=== PATIENT | female | born 2000 | race Two or more races ===

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

== ENCOUNTER 2021-10-03 09:12 | Emergency (ER) | payer OTHER ==
[~2021-10-03] VITALS: Ht 167.6 cm; Wt 70.8 kg
[~2021-10-03 09:12] MED LIST: MOBI4TAB PO
[2021-10-03] MEDS ORDERED: NS 1,000 ML IV ONE (10:00)
[2021-10-03] MEDS ORDERED: ONDANSETRON 4MG/2ML VIAL IV ONE (10:00)
[2021-10-03 10:51] LABS: BASO % 0.2 % (0.0-1.0); EOS % 0.4 % (0.0-3.0); HEMATOCRIT 33.7 % (36.0-47.0); HEMOGLOBIN 11.3 g/dl (12.0-15.5); LYMPH # 1.3 10^3/uL (1.5-5.0); LYMPH % 14.8 % (24.0-44.0); MEAN CORPUSCULAR HEMOGLOBIN 26.7 pg (27.0-33.0); MEAN CORPUSCULAR HGB CONC 33.5 g/dl (32.0-36.5); MEAN CORPUSCULAR VOLUME 79.7 fl (80.0-96.0); MONO # 0.4 10^3/uL (0.0-0.8); MONO % 4.8 % (2.0-8.0); NEUTROPHILS # 6.7 10^3/uL (1.5-8.5); NEUTROPHILS % 79.6 % (36.0-66.0); PLATELET COUNT, AUTOMATED 242 10^3/uL (150-450); RED BLOOD COUNT 4.23 10^6/uL (4.00-5.40); WHITE BLOOD COUNT 8.5 10^3/uL (4.0-10.0)
[2021-10-03 11:38] LABS: ALBUMIN 3.3 GM/DL (3.2-5.2); BILIRUBIN,DIRECT 0.1 MG/DL (0.0-0.2); BILIRUBIN,TOTAL 0.4 MG/DL (0.2-1.0); TOTAL PROTEIN 7.2 GM/DL (6.4-8.2)
[2021-10-03 13:20] VITALS: BP 117/71
== END 2021-10-03 14:15 | disposition home or self-care (01) ==
LOC: M ED 09:12
DX: O44.12 Complete placenta previa with hemorrhage, second trimester (principal); O21.1 Hyperemesis gravidarum with metabolic disturbance; Z88.0 Allergy status to penicillin; Z3A.13 13 weeks gestation of pregnancy
CPT/HCPCS: 36415; 76801; 80047; 80076; 81001; 83690; 84702; 85025; 86850; 86900; 86901; 87880; 93976; 96361; 96374; 99284; J2405

== ENCOUNTER 2022-04-11 15:10 | Inpatient (IN) | payer OTHER ==
[~2022-04-11] VITALS: Ht 167.6 cm; Wt 89.8 kg
[2022-04-11] MEDS ORDERED: LIDOCAINE 1% MDV 20ML VIAL INFIL PRN (16:15)
[2022-04-11] MEDS ORDERED: OXYTOCIN DRIP 30 UNITS in IV 1 EA IV PRN ×4 (16:15)
[2022-04-11] MEDS ORDERED: PRENTAB29 PO (16:27)
[2022-04-11] MEDS ORDERED: LR 1,000 ML IV SCH (16:30)
[2022-04-11 17:38] LABS: HEMATOCRIT 32.9 % (36.0-47.0); HEMOGLOBIN 10.6 g/dl (12.0-15.5); MEAN CORPUSCULAR HEMOGLOBIN 25.2 pg (27.0-33.0); MEAN CORPUSCULAR HGB CONC 32.2 g/dl (32.0-36.5); MEAN CORPUSCULAR VOLUME 78.1 fl (80.0-96.0); PLATELET COUNT, AUTOMATED 271 10^3/uL (150-450); RED BLOOD COUNT 4.21 10^6/uL (4.00-5.40); WHITE BLOOD COUNT 10.3 10^3/uL (4.0-10.0)
[2022-04-11] MEDS: miSOPROStol 25MCG 1/4 TABLET PO SCH ×2 (17:45→22:33)
[2022-04-11 17:48] VITALS: BP 98/69
[2022-04-11 19:04] VITALS: BP 120/79
[2022-04-11] MEDS ORDERED: HOME MED LIST COMPLETE! XX SCH (19:30)
[2022-04-11 21:28] VITALS: BP 102/53
[2022-04-12] VITALS (31 sets, daily range): BP systolic 100–147; BP diastolic 55–114
[2022-04-12] MEDS ORDERED: ceFAZolin SOD 1 GM in D5W MINI-BAG PLUS 50 ML IV SCH ×2 (00:15→09:00)
[2022-04-12] MEDS ORDERED: ceFAZolin SOD 2 GM in IV 1 EA IV STA (00:51)
[2022-04-12] MEDS ORDERED: PROMETHAZINE 25MG/ML 1ML VIAL IV ONE (02:00)
[2022-04-12] MEDS ORDERED: BUTORPHANOL 2 MG/ML INJ (J0595) IV ONE (02:00)
[2022-04-12] MEDS ORDERED: FENTANYL 2MCG/ML ROPIVACAINE 0.2% IN 0.9% NACL 100ML IVBAG As Ordered ONE (02:08)
[2022-04-12] MEDS ORDERED: diphenhydrAMINE 50MG/ML VIAL (J1200) IV PRN (02:15)
[2022-04-12] MEDS ORDERED: ePHEDrine SULFATE 25 MG/5 ML(5MG/ML) SYRINGE IVP PRN (02:15)
[2022-04-12] MEDS ORDERED: ONDANSETRON 4MG/2ML VIAL IV PRN (02:15)
[2022-04-12] MEDS ORDERED: FENTANYL/ROPIVACAINE/NACL BAG 100 ML EPIDURAL SCH ×2 (02:15→09:36)
[2022-04-12] MEDS ORDERED: NALOXONE INJ 0.4MG/1ML VIAL (J2310 PER 1MG) IV PRN (02:15)
[2022-04-12] MEDS ORDERED: LR 500 ML IV PRN (02:15)
[2022-04-12] MEDS ORDERED: EPIDURAL/PCA KEYS XX PRN (02:15)
[2022-04-12] MEDS ORDERED: OXYTOCIN DRIP 30 UNITS in IV 1 EA IV SCH ×4 (03:15)
[2022-04-12] MEDS ORDERED: LR 1,000 ML IV SCH (03:15)
[2022-04-12] MEDS: PRENATAL VITAMINS CHEWABLE TABLET PO SCH (09:00)
[2022-04-12] MEDS ORDERED: MORPHINE 10 MG/ML 1ML VIAL IV ONE (11:15)
[2022-04-12] MEDS ORDERED: MORPHINE 10 MG/ML 1ML VIAL As Ordered ONE (11:15)
[2022-04-12] MEDS ORDERED: LIDOCAINE 1% MDV 50ML VIAL As Ordered ONE (11:19)
[2022-04-12] MEDS ORDERED: OXYTOCIN 30 UNITS IN 0.9% NaCl 500ML IV BAG (J2590) As Ordered ONE (11:20)
[2022-04-12] MEDS ORDERED: MOM 30ML SUSPENSION UDC PO PRN (12:05)
[2022-04-12] MEDS ORDERED: DOCUSATE SODIUM 100MG CAPSULE PO PRN (12:05)
[2022-04-12] MEDS ORDERED: ACETAMINOPHEN 500 MG TAB PO PRN (12:05)
[2022-04-12] MEDS ORDERED: DIBUCAINE 1% OINTMENT 30GM TOP PRN (12:05)
[2022-04-12] MEDS ORDERED: METHYLERGONOVINE MALEATE 0.2 MG TAB PO PRN (12:05)
[2022-04-12] MEDS ORDERED: RHOGAM 300 MCG (1500 IU) INJ (J2790) IM SCH (12:05)
[2022-04-13] MEDS: IBUPROFEN 800 MG TAB PO PRN ×2 (03:46→15:41)
[2022-04-13 06:00] VITALS: BP 101/52
[2022-04-13] MEDS: PRENATAL VITAMINS CHEWABLE TABLET PO SCH (08:00)
[2022-04-13 18:00] VITALS: BP 108/53
[2022-04-14] MEDS: IBUPROFEN 800 MG TAB PO PRN (02:10)
[2022-04-14 06:02] VITALS: BP 107/56
[2022-04-14] MEDS: PRENATAL VITAMINS CHEWABLE TABLET PO SCH (08:33)
[2022-04-14] MEDS ORDERED: MEASLES,MUMPS,RUBELLA VACCINE INJ (MMR-II) (90707) SC.IMMUN ONE (09:00)
== END 2022-04-14 09:20 | disposition home or self-care (01) | DRG 807 ==
LOC: M LDI 15:10 → M OBS 04-12 14:23
PROVIDERS: ADMIT Obstetrics & Gynecology; ATTEND Obstetrics & Gynecology
PROC: 3E033VJ Introduction of Other Hormone into Peripheral Vein, Percutaneous Approach (ICD-10-PCS; 2022-04-11)
PROC: 10E0XZZ Delivery of Products of Conception, External Approach (ICD-10-PCS; principal; 2022-04-12)
PROC: 0HQ9XZZ Repair Perineum Skin, External Approach (ICD-10-PCS; 2022-04-12)
DX: O36.8130 Decreased fetal movements, third trimester, not applicable or unspecified (principal); Z37.0 Single live birth; Z3A.39 39 weeks gestation of pregnancy; O99.824 Streptococcus B carrier state complicating childbirth; O62.2 Other uterine inertia; O70.0 First degree perineal laceration during delivery

== ENCOUNTER 2023-11-09 02:09 | Inpatient (IN) | payer OTHER ==
[~2023-11-09] VITALS: Ht 167.6 cm; Wt 94.6 kg
[~2023-11-09 02:09] MED LIST changes: +PRENTAB29 PO
[2023-11-09] MEDS ORDERED: ceFAZolin SOD 2 GM in IV 1 EA IV STA (02:17)
[2023-11-09] MEDS ORDERED: LACTATED RINGER'S 1000 ML IV STA (02:17)
[2023-11-09] MEDS ORDERED: METHYLERGONOVINE MALEATE 0.2MG/ML 1ML VIAL IM PRN ×2 (02:20→02:30)
[2023-11-09] MEDS ORDERED: OXYTOCIN DRIP 30 UNITS in IV 1 EA IV PRN ×4 (02:20)
[2023-11-09] MEDS ORDERED: TRANEXAMIC ACID INJection 1,000 MG in NS 100 ML IV PRN (02:20)
[2023-11-09] MEDS: LR 1,000 ML IV SCH ×4 (02:20→10:30)
[2023-11-09] MEDS ORDERED: LIDOCAINE 1% MDV 20ML VIAL INFIL PRN (02:20)
[2023-11-09] MEDS ORDERED: ONDANSETRON 4MG 2ML VIAL IV PRN (02:30)
[2023-11-09] MEDS ORDERED: IBUPROFEN 600MG TAB PO PRN (02:30)
[2023-11-09] MEDS ORDERED: ACETAMINOPHEN TAB 650MG DOSE (2X325MG) PO PRN (02:30)
[2023-11-09] MEDS ORDERED: DOCUSATE SODIUM 100MG CAPSULE PO PRN (02:30)
[2023-11-09] MEDS ORDERED: OXYTOCIN DRIP 30 UNITS in IV 1 EA IV SCH (02:30)
[2023-11-09] MEDS ORDERED: METOCLOPRAMIDE INJ 10MG/2ML VIAL IV PRN (02:30)
[2023-11-09] MEDS ORDERED: RHOGAM 300MCG (1500IU) INJ IM SCH (02:30)
[2023-11-09] MEDS ORDERED: ACETAMINOPHEN 500 MG TAB PO PRN (02:30)
[2023-11-09] MEDS ORDERED: DIBUCAINE 1% OINTMENT 30GM TOP PRN (02:30)
[2023-11-09 02:48] LABS: HEMATOCRIT 32.8 % (36.0-47.0); HEMOGLOBIN 10.2 g/dl (12.0-15.5); MEAN CORPUSCULAR HEMOGLOBIN 22.3 pg (27.0-33.0); MEAN CORPUSCULAR HGB CONC 31.1 g/dl (32.0-36.5); MEAN CORPUSCULAR VOLUME 71.8 fl (80.0-96.0); PLATELET COUNT, AUTOMATED 270 10^3/uL (150-450); RED BLOOD COUNT 4.57 10^6/uL (4.00-5.40); WHITE BLOOD COUNT 10.5 10^3/uL (4.0-10.0)
[2023-11-09] MEDS: IBUPROFEN 800 MG TAB PO PRN ×2 (05:31→16:45)
[2023-11-09 06:00] VITALS: BP 113/56; O2SAT 98
[2023-11-09] MEDS: PRENATAL VITAMINS CHEWABLE TABLET PO SCH (07:34)
[2023-11-09] MEDS ORDERED: ceFAZolin SOD 1 GM in D5W MINI-BAG PLUS 50 ML IV SCH (10:45)
[2023-11-09 18:00] VITALS: BP 126/63; O2SAT 99
[2023-11-10 06:00] VITALS: BP 110/57; O2SAT 98
[2023-11-10] MEDS: PRENATAL VITAMINS CHEWABLE TABLET PO SCH (07:49)
[2023-11-10] MEDS: IBUPROFEN 800 MG TAB PO PRN (07:56)
[2023-11-11] MEDS ORDERED: MEASLES,MUMPS,RUBELLA VACCINE INJ (MMR-II) SC.IMMUN ONE (09:00)
== END 2023-11-10 16:28 | disposition home or self-care (01) | DRG 807 ==
LOC: M LDO 02:09 → M LDI 02:18 → M OBS 05:27
PROVIDERS: ADMIT Obstetrics & Gynecology; ATTEND Obstetrics & Gynecology
PROC: 10E0XZZ Delivery of Products of Conception, External Approach (ICD-10-PCS; principal; 2023-11-09)
DX: O99.824 Streptococcus B carrier state complicating childbirth (principal); Z37.0 Single live birth; Z3A.39 39 weeks gestation of pregnancy

== ENCOUNTER 2023-12-06 12:55 | Emergency (ER) | payer OTHER ==
[~2023-12-06] VITALS: Ht 167.6 cm; Wt 89.5 kg
[2023-12-06 14:19] LABS: APPEARANCE, URINE CLOUDY (CLEAR); BACTERIA, URINE AUTO 1+ (NEGATIVE); BILIRUBIN, URINE AUTO NEGATIVE (NEGATIVE); BLOOD, URINE BLOOD 1+ (NEGATIVE); COLOR, URINE YELLOW (YELLOW); GLUCOSE, URINE (UA) AUTO NEGATIVE (NEGATIVE); KETONE, URINE AUTO NEGATIVE (NEGATIVE); LEUKOCYTE ESTERASE, URINE AUTO 3+ (NEGATIVE); MUCUS, URINE SMALL (NEGATIVE); NITRITE, URINE AUTO NEGATIVE (NEGATIVE); PROTEIN, URINE AUTO 2+ mg/dL (NEGATIVE); RBC, URINE AUTO 13 /HPF (0-3); SPECIFIC GRAVITY URINE AUTO 1.016 (1.002-1.035); SQUAMOUS EPITHELIAL CELL UR AU 7 /HPF (0-6); UROBILINOGEN, URINE AUTO 0.2 mg/dL (0.0-2.0); WBC, URINE AUTO TNTC /HPF (0-3)
[2023-12-06 16:38] VITALS: BP 127/73; O2SAT 100
[2023-12-06] MEDS: CEPHALEXIN 500 MG CAP PO ONE (16:49)
[2023-12-06] MEDS: ACETAMINOPHEN 500 MG TAB PO ONE (16:50)
[2023-12-06] MEDS ORDERED: CEPH500C PO (17:07)
[2023-12-06 17:17] VITALS: TEMP 102.1
== END 2023-12-06 17:21 | disposition home or self-care (01) ==
LOC: M ED 12:55 → EEVIPCON 12:55 → M ED 17:21
DX: N39.0 Urinary tract infection, site not specified (principal); Z88.0 Allergy status to penicillin; Z79.1 Long term (current) use of non-steroidal anti-inflammatories (NSAID); Z79.899 Other long term (current) drug therapy